=== PATIENT | male | born 1965 | race Caucasian/White ===

== ENCOUNTER 2018-03-15 18:55 | Emergency (ER) | payer OTHER ==
[2018-03-15] MEDS: KETOROLAC 15 MG INJ IM (23:33)
== END 2018-03-15 23:40 | disposition home or self-care (01) ==
LOC: E/R 18:55
DX: S60.222A Contusion of left hand, initial encounter (principal); G89.29 Other chronic pain; F17.210 Nicotine dependence, cigarettes, uncomplicated; W22.8XXA Striking against or struck by other objects, initial encounter; Y92.149 Unspecified place in prison as the place of occurrence of the external cause; Z43.3 Encounter for attention to colostomy
CPT/HCPCS: 73130; 73130-LT; 96372; 99284-25

== ENCOUNTER 2018-04-10 02:33 | Emergency (ER) | payer OTHER ==
[2018-04-10 05:48] LABS: ADD MAN DIFF? NO
[2018-04-10 05:56] LABS: WHITE BLOOD COUNT 10.7 10^3/ul (4.8-10.8)
[2018-04-10 05:56] LABS: BASOPHIL # 0.1 10^3/ul (0.0-0.1); BASOPHILS % 0.5 % (0.0-2.0); EOSINOPHILS # 0.1 10^3/ul (0.0-0.5); EOSINOPHILS % 0.9 % (0.0-7.0); HEMATOCRIT 35.2 % (42.0-52.0); HEMOGLOBIN 11.7 g/dl (14.0-18.0); LYMPHOCYTES # 1.9 10^3/ul (0.8-2.9); LYMPHOCYTES % 17.6 % (15.0-51.0); MEAN CORPUSCULAR HGB CONC 33.2 g/dl (32.0-37.0); MEAN CORPUSCULAR VOLUME 93.1 fl (82.0-101.0); MEAN PLATELET VOLUME 8.2 fl (7.4-10.4); MONOCYTE # 0.8 10^3/ul (0.3-0.9); MONOCYTES % 7.8 % (0.0-11.0); NEUTROPHIL # 7.8 10^3/ul (1.6-7.5); NEUTROPHILS % 72.7 % (39.0-77.0); PLATELET COUNT 209 10^3/UL (140-415); RED BLOOD COUNT 3.78 10^6/ul (4.70-6.10); RED CELL DISTRIBUTION WIDTH 13.2 % (11.5-14.5)
[2018-04-10 06:36] LABS: ALANINE AMINOTRANSFERASE 11 IU/L (13-69); ALBUMIN 3.5 g/dl (3.3-4.9); ALBUMIN/GLOBULIN RATIO 0.92; ALKALINE PHOSPHATASE 225 IU/L (42-121); ANION GAP 17 (5-13); ASPARTATE AMINO TRANSFERASE 31 IU/L (15-46); BILIRUBIN,INDIRECT 0.3 mg/dl (0-1.1); BILIRUBIN,TOTAL 0.3 mg/dl (0.2-1.3); BLOOD UREA NITROGEN 7 mg/dl (7-20); CALCIUM 8.1 mg/dl (8.4-10.2); CARBON DIOXIDE 27 mmol/L (21-31); CHLORIDE 100 mmol/L (97-110); CREATININE 0.42 mg/dl (0.61-1.24); Estimated GFR > 60 mL/min (>60); GLUCOSE 95 mg/dl (70-220); LIPASE 55 U/L (23-300); SODIUM 144 mmol/L (135-144); TOTAL PROTEIN 7.3 g/dl (6.1-8.1)
[2018-04-10 06:39] LABS: POTASSIUM 2.9 mmol/L (3.5-5.1)
[2018-04-10] MEDS: ONDANSETRON 4 MG INJ IV (06:57)
[2018-04-10] MEDS: HYDROmorphONE 1 MG/ML SYG IV (06:57)
[2018-04-10] MEDS: POTASSIUM CHLORIDE (SR) 20 MEQ TAB PO (06:58)
[2018-04-10] MEDS: 1/2 NS + KCL 20 MEQ 1,000 ML IV (07:26)
[2018-04-10] MEDS: IOHEXOL 300MG/ML 150 ML BTL (08:05)
[2018-04-10] MEDS: SOD CHLORIDE 0.9% 100 ML (08:05)
[2018-04-10] MEDS: ERTAPENEM SODIUM 1 GM in SOD CHLORIDE 0.9% 100 ML IVPB (10:02)
== END 2018-04-10 11:36 | disposition home or self-care (01) ==
LOC: E/R 02:33
DX: K52.9 Noninfective gastroenteritis and colitis, unspecified (principal); F17.210 Nicotine dependence, cigarettes, uncomplicated
CPT/HCPCS: 74177; 80053; 83690; 85025; 96361; 96374; 96375; 99285-25

== ENCOUNTER 2018-04-26 06:01 | Emergency (ER) | payer OTHER ==
[2018-04-26] MEDS: HYDROCODONE/APAP (10/325) TAB PO (06:39)
== END 2018-04-26 07:10 | disposition home or self-care (01) ==
LOC: E/R 06:01
DX: M54.9 Dorsalgia, unspecified (principal)
CPT/HCPCS: 99283; Z7502

== ENCOUNTER 2018-05-04 19:20 | Emergency (ER) | payer SELFPAY, OTHER | END 2018-05-04 20:46 | disposition left against medical advice (07) | LOC: E/R 19:20 | DX: Z53.21 Procedure and treatment not carried out due to patient leaving prior to being seen by health care provider (principal) ==

== ENCOUNTER 2018-05-18 21:09 | Emergency (ER) | payer SELFPAY | END 2018-05-18 23:00 | disposition left against medical advice (07) | LOC: E/R 21:09 | DX: Z53.21 Procedure and treatment not carried out due to patient leaving prior to being seen by health care provider (principal) ==

== ENCOUNTER 2018-06-14 12:36 | Emergency (ER) | payer SELFPAY | END 2018-06-14 14:16 | disposition left against medical advice (07) | LOC: FTE 12:36 | DX: Z53.21 Procedure and treatment not carried out due to patient leaving prior to being seen by health care provider (principal) ==